=== PATIENT | male | born 1995 | race African-American/Black ===

== ENCOUNTER 2022-05-09 17:37 | Emergency (ER) | payer SELFPAY ==
[~2022-05-09] VITALS: Ht 177.8 cm; Wt 95.5 kg
[2022-05-09 17:43] VITALS: BP 135/71
[2022-05-09] MEDS ORDERED: ACETAMINOPHEN 500 MG TABLET PO ONE (19:00)
== END 2022-05-09 19:35 | disposition home or self-care (01) ==
LOC: EMS 17:41
DX: S16.1XXA Strain of muscle, fascia and tendon at neck level, initial encounter (principal); F12.90 Cannabis use, unspecified, uncomplicated; V49.59XA Passenger injured in collision with other motor vehicles in traffic accident, initial encounter; Y93.89 Activity, other specified; Y92.89 Other specified places as the place of occurrence of the external cause; Y99.8 Other external cause status
CPT/HCPCS: 99283